=== PATIENT | male | born 1995 | race Caucasian/White ===

== ENCOUNTER 2018-01-12 15:38 | Emergency (ER) | END 2018-01-12 17:54 | disposition home or self-care (01) ==

== ENCOUNTER 2018-01-14 13:29 | Emergency (ER) | END 2018-01-14 14:55 | disposition home or self-care (01) ==

== ENCOUNTER 2018-01-20 13:53 | Emergency (ER) | END 2018-01-20 14:41 | disposition home or self-care (01) ==